=== PATIENT | female | born 1965 | race Caucasian/White ===

== ENCOUNTER 2019-07-22 09:48 | Inpatient (IN) ==
[2019-07-22 10:21] LABS: BASO# 0.02 X1000 (0.0-0.2); BASO% 0.1 % (0.0-0.8); EOS% 3.2 % (0.0-10.0); HEMATOCRIT 45.5 % (37.0-47.0); HEMOGLOBIN 15.2 g/dL (12.0-16.0); IMM GRAN# 0.11 X1000 (0.0-0.04); IMM GRAN% 0.6 % (0.0-0.5); LYMPH# 2.39 X1000 (1.2-3.4); LYMPH% 12.7 % (20.5-51.1); MCH 32.1 PG (27-31); MCHC 33.4 g/dL (33-37); MCV 96.2 FL (81-99); MONO# 1.79 X1000 (0.11-0.59); MONO% 9.5 % (1.7-9.3); NEUT# 13.96 X1000 (1.4-6.5); NEUT% 73.9 % (42.2-75.2); PLT 221 X1000 (130-400); RBC 4.73 XMIL (4.2-5.4); RDW 13.7 % (11.5-14.5); WBC 18.87 X1000 (4.8-10.8)
[2019-07-22 10:36] LABS: ACETAMINOPHEN 1.8 ug/mL (10-30); AGAP 12; ALBUMIN 4.3 g/dL (3.5-5.0); ALKALINE PHOSPHATASE 80 U/L (32-104); BUN 8 mg/dL (8-22); CALCIUM 9.6 mg/dL (8.8-10.2); CHLORIDE 103 mmol/L (98-107); COSMO 283; CREATININE 0.8 mg/dL (0.5-0.9); ESTIMATED GFR > 60; GLUCOSE 92 mg/dL (70-104); GOT 19 U/L (10-30); GPT 16 U/L (10-36); POTASSIUM 2.9 mmol/L (3.5-5.1); SALICYLATES < 3.00 mg/dL (3-10); SODIUM 143 mmol/L (136-145); TCO2 27 mmol/L (25-35); TOTAL PROTEIN 6.8 g/dL (6.3-8.3)
[2019-07-22 10:46] LABS: UR AMPHETAMINES QUAL NONE DETECTED (NONE DETECT); UR BARBITUATES QUAL NONE DETECTED (NONE DETECT); UR BENZODIAZEPIN QUAL NONE DETECTED (NONE DETECT); UR CANNABINOIDS QUAL NONE DETECTED (NONE DETECT); UR COCAINE QUAL NONE DETECTED (NONE DETECT); UR METHADONE QUAL NONE DETECTED (NONE DETECT); UR METHAMPHETAMINE QUAL NONE DETECTED (NONE DETECT); UR OPIATES QUAL NONE DETECTED (NONE DETECT); UR OXYCODONE QUAL PRESUMPTIVE POSITIVE (NONE DETECT); UR PCP QUAL NONE DETECTED (NONE DETECT); UR PROPOXYPHENE QUAL NONE DETECTED (NONE DETECT); UR TCA QUAL NONE DETECTED (NONE DETECT)
[2019-07-22] MEDS ORDERED: NICODERM PATCH TD ONE (11:00)
[2019-07-22] MEDS ORDERED: KLOR-CON PO ONE (11:02)
--- NOTE | 2019-07-22 11:09 | Diag Imaging Result Doc PS360 ---
EXAM: CHEST-2 VIEWS HISTORY: cough TECHNIQUE: Two views COMPARISON: 09/04/2017 FINDINGS: The lungs are well expanded. The heart is not enlarged. The vessels are not distended. There are no infiltrates. No pleural effusions. IMPRESSION: No pneumonia Electronically signed by Constantine Rosario 07/22/2019 11:06 AM
[2019-07-22] MEDS ORDERED: ATIVAN PO ONE (11:14)
[2019-07-22] MEDS ORDERED: POTASSIUM CHLORIDE 40 MEQ/SWI 40 MEQ/100 ML IVPB IV ONE (11:51)
[2019-07-22] MEDS ORDERED: DUONEB (A & A) INH PRN ×2 (11:55→13:42)
[2019-07-22] MEDS ORDERED: POTASSIUM CHLORIDE 20 MEQ/SWI 20 MEQ/100 ML IVPB IV SCH ×2 (12:00→14:00)
[2019-07-22] MEDS ORDERED: NS 1,000 ML IV SCH (12:00)
[2019-07-22 12:19] LABS: URINE SOURCE CLEAN CATCH
[2019-07-22 12:26] LABS: BILIRUBIN URINE NEGATIVE (NEGATIVE); BLOOD URINE NEGATIVE (NEGATIVE); CLARITY CLEAR (CLEAR); COLOR YELLOW; GLUCOSE URINE NEGATIVE (NEGATIVE); KETONE URINE NEGATIVE (NEGATIVE); LEUKOCYTES URINE 2+ (NEGATIVE); NITRITE URINE NEGATIVE (NEGATIVE); PH URINE 6.5; PROTEIN URINE TRACE mg/dL (NEGATIVE); SP GRAVITY URINE 1.005; URINE BACTERIA 3+ /HFP; URINE CAST NONE SEEN /LPF; URINE CRYSTAL NONE SEEN /HPF; URINE EPITHELIAL CELLS >10 /HPF (<10); URINE RBC <10 /HPF (<10); URINE YEAST NONE SEEN /HPF; UROBILINOGEN URINE NORMAL
--- NOTE | 2019-07-22 12:32 | HISTORY AND PHYSICAL ---
CHIEF COMPLAINT: Drug overdose. HISTORY OF PRESENT ILLNESS: This is a 54-year-old female. She has a history of COPD, major depressive disorder, although she has not been in the hospital for a while, diabetes, but it is diet controlled, spinal stenosis which causes chronic pain, hypertension. She has been having a lot issues with pain control, and feels despondent because she cannot get her pain under control. She has, I guess, no chronic pain doctor. This morning, she took the rest of a bottle of metoprolol 200 mg sustained. Reportedly, 11 pills were taken. I am not quite sure what time that happened. She did not throw any up. The patient was very nervous. She wanted to leave. I think she got some Ativan. In any case, she has had numerous attempts before. It looks like her last admission though was only in 2017, and she was admitted at [facility] at that time for bipolar disorder with suicidal ideation and drug overdose, also generalized anxiety disorder. She had been on Geodon, Remeron, Celexa, Valium, trazodone at that time. The patient is going to be admitted for drug overdose. She has to be observed because of the potential for bradycardia and bronchospasm and hypotension associated with her drug overdose state. PAST MEDICAL HISTORY: 1. COPD. 2. Hypertension. 3. Noninsulin-dependent diabetes. 4. Spinal stenosis. 5. GERD. 6. Dyslipidemia. PAST SURGICAL HISTORY: She has had cholecystectomy. SOCIAL HISTORY: She denies alcohol use. She does smoke a pack a day, she says for 38 years. No other drugs. FAMILY HISTORY: Sister and aunt with schizophrenia. Brother with bipolar disorder. Mother had CHF. Father had leukemia. ALLERGIES: Abilify, Welchol, and Reglan. REVIEW OF SYSTEMS: Otherwise negative times a 10-point review of systems. MEDICATIONS: Lipitor 40, clonidine 0.2, lisinopril 30, Neurontin 600 t.i.d., Prilosec 40 daily, Toprol-XL 200 daily, and trazodone 50 at bedtime. She is not on any psychiatric medications besides trazodone, but that may just be for sleep. PHYSICAL EXAMINATION: VITAL SIGNS: Currently, blood pressure is 152/92, heart rate of 62, respiratory rate 18, she has gotten as low as the 50s GENERAL: A well-developed female in no acute distress. She is a bit anxious. EYES: Pupils equal, round, reactive to light. Extraocular moves are intact. ENT: She had moist mucous membranes. NECK: Supple. CARDIOVASCULAR: Regular rate and rhythm. No murmurs, gallops, or rubs. PULMONARY: Bilateral breath sounds. She has some rales at the bottom of the left base. GASTROINTESTINAL: Soft, nontender, nondistended. Bowel sounds are positive. NEUROLOGIC: Cranial nerves II through XII were grossly intact. MUSCULOSKELETAL: Strength was 4/5, limited in her lower extremities because of back pain. LABORATORY DATA: White count is 18, hemoglobin and hematocrit 15 and 45, platelets 221,000. Potassium 2.9. Urine was negative, except for opiates. No alcohol. ASSESSMENT: This is a 54-year-old female with history of depression, hypertension, chronic obstructive pulmonary disease, who is here for a beta-ramiro overdose, suicidal ideation, major depression. 1. Beta-ramiro overdose. The fact that she took ten 200 sustained, she will need to be observed for at least 24 hours to make sure no bradycardia develops or hypotension or bronchospasm since she is a chronic obstructive pulmonary disease patient. We will watch her in the unit. Continue hydration. Supplement her potassium, and follow. She may require assistance if she does develop symptomatic bradycardia. At this time, we are just going to monitor. 2. Suicidal ideation, major depressive disorder, or bipolar. She will need urgent Psychiatric evaluation when she is medically stable. 3. Chronic obstructive pulmonary disease appears to be compensated. She is not hypoxic. She is not wheezing. Chest x-ray is clear. I am going to go ahead and just schedule nebulizer treatments, mostly because I am trying to avoid any toxic side effects from the beta-ramiro. 4. Diabetes. Will monitor blood sugars. They have been stable here. They look normal. May check an A1c and see if she has that truly. 5. Disposition. Pending her clinical status, obviously will go to intensive care unit. cc: MD Roberto Cantu MD MTDD
[2019-07-22] MEDS: DUONEB (A & A) INH SCH ×2 (15:39→21:21)
[2019-07-22] MEDS ORDERED: DUONEB (A & A) INH SCH (16:00)
--- NOTE | 2019-07-22 17:03 | PROGRESS NOTE ---
DATE: 07/22/2019 Patient was admitted on 07/22/2019 to [facility] and transferred over here. Her doctor is Dr. Roberto Christensen. This is a 54-year-old with history of COPD, major depressive order. She has not been in the hospital for a while. She has diabetes mellitus type 2. She has some spinal stenosis that causes chronic pain. Has history of hypertension. She has been having a lot of issues with pain control, feels despondent because they cannot get her pain under control. She has no chronic pain doctor. Took the rest of the bottle of her metoprolol, and they were 200 mg sustained tablets, where she took 11 tablets. Not quite sure what time this happened. She did not throw up any. Patient was nervous and wanted to leave. She got some Ativan. In any case, she has had numerous attempts before, I guess with overdose. It looks like the last admission was in 2017. Admitted to [facility] at that time for bipolar disorder and suicidal ideation, drug overdose, generalized anxiety disorder. She has been on Geodon, Remeron, Celexa, Valium, trazodone. Will admit the patient for metoprolol overdose. PAST MEDICAL HISTORY: 1. COPD. 2. Hypertension. 3. Diabetes mellitus type 2. 4. Spinal stenosis. 5. Gastroesophageal reflux disease. 6. Dyslipidemia. PAST SURGICAL HISTORY: She has had a cholecystectomy. PHYSICAL EXAMINATION: Vitals: At present blood pressure 130/80. Remains afebrile. Pulse of 67, respirations 17. Lungs: Clear anterolateral. Cardiovascular: Regular rhythm and rate without murmur or S3. Carotid, radial, and peripheral pulses 2+ and symmetrical. Extremities: Good capillary refill. No pedal edema. Skin: No sign of rashes. LABORATORY DATA: I reviewed her labs. White count was 18,870, hematocrit 45, platelet count 221,000. Sodium 143, potassium 2.9, chloride 103, BUN 8, creatinine 0.8. AST 19. ALT was 16. Alkaline phosphatase was 80. Urinalysis presumptive positive for oxycodone. Acetaminophen level was low at 1.8. Urinalysis unremarkable. It did have 3+ bacteria but no symptoms reported, dysuria, gross hematuria. Chest x-ray without pneumonia. ASSESSMENT AND PLAN: 1. Beta ramiro overdose. She took 10 to 11 of the 200 mg sustained release metoprolol. Observe at least 24 hours to make sure no significant bradycardia or hypertension occurs or significant bronchospasms. She does have underlying chronic obstructive pulmonary disease. 2. Chronic obstructive pulmonary disease. Respiratory status is stable, good air and gas exchange at this point. 3. Suicidal ideation, major depressive disorder, diagnosis of bipolar. Will have psychiatric evaluation. 4. Diabetes mellitus type 2. Pattern sugars. She is not hungry right now. We will just give her clear liquids. 5. Review her orders. She does have a nicotine patch. She is getting normal saline at 100 mL/hour. I did give her some potassium supplement at 20 mEq, and she is getting albuterol- ipratropium breathing treatments. cc: Blaze Amor MD
[2019-07-22] MEDS ORDERED: ZOFRAN IV PRN (18:34)
[2019-07-22] MEDS ORDERED: NS 1,000 ML IV ONE (18:34)
[2019-07-22] MEDS ORDERED: TYLENOL PO PRN (18:34)
[2019-07-22 19:51] LABS: AGAP 10; ALB/GLOB RATIO 1.5; ALBUMIN 3.1 g/dL (3.5-5.0); ALKALINE PHOSPHATASE 57 U/L (32-104); BUN 8 mg/dL (8-22); CALCIUM 8.7 mg/dL (8.8-10.2); CHLORIDE 108 mmol/L (98-107); COSMO 284; CREATININE 0.6 mg/dL (0.5-0.9); ESTIMATED GFR > 60; GLUCOSE 105 mg/dL (70-104); GOT 13 U/L (10-30); GPT 12 U/L (10-36); POTASSIUM 3.9 mmol/L (3.5-5.1); SODIUM 143 mmol/L (136-145); TCO2 25 mmol/L (25-35); TOTAL BILIRUBIN 0.45 mg/dL (0.20-1.00); TOTAL PROTEIN 5.2 g/dL (6.3-8.3)
[2019-07-22] MEDS: ATIVAN IV PRN (20:50)
[2019-07-22] MEDS: MORPHINE IV PRN (20:50)
[2019-07-22] MEDS: NEURONTIN PO SCH (20:53)
[2019-07-22] MEDS ORDERED: LIPITOR PO SCH (21:00)
[2019-07-22] MEDS: NS 1,000 ML IV SCH (23:42)
[2019-07-23] MEDS: ATIVAN IV PRN ×2 (00:02→06:10)
[2019-07-23] MEDS: DUONEB (A & A) INH SCH ×2 (03:14→09:38)
[2019-07-23] MEDS: MORPHINE IV PRN ×2 (04:23→09:26)
[2019-07-23 06:27] LABS: BASO# 0.01 X1000 (0.0-0.2); BASO% 0.1 % (0.0-0.8); EOS# 0.36 X1000 (0.0-0.7); EOS% 2.5 % (0.0-10.0); HEMATOCRIT 41.6 % (37.0-47.0); HEMOGLOBIN 13.7 g/dL (12.0-16.0); IMM GRAN# 0.06 X1000 (0.0-0.04); IMM GRAN% 0.4 % (0.0-0.5); LYMPH# 4.47 X1000 (1.2-3.4); LYMPH% 30.7 % (20.5-51.1); MCH 32.3 PG (27-31); MCHC 32.9 g/dL (33-37); MCV 98.1 FL (81-99); MONO# 1.52 X1000 (0.11-0.59); MONO% 10.4 % (1.7-9.3); MPV 11.3 FL (7.4-10.4); NEUT# 8.13 X1000 (1.4-6.5); NEUT% 55.9 % (42.2-75.2); PLT 179 X1000 (130-400); RBC 4.24 XMIL (4.2-5.4); RDW 13.7 % (11.5-14.5); WBC 14.55 X1000 (4.8-10.8)
[2019-07-23] MEDS ORDERED: PRILOSEC PO SCH (07:00)
--- NOTE | 2019-07-23 07:38 | EKG Report ---
Test Performed on : 07/22/2019 10:09:10 AM Test Reason : overdose Blood Pressure : / mmHG Vent. Rate : 069 BPM Atrial Rate : 069 BPM P-R Int : 148 ms QRS Dur : 092 ms QT Int : 376 ms P-R-T Axes : 037 020 069 degrees QTc Int : 402 ms Normal sinus rhythm. Possible Anterior infarct , age undetermined Abnormal ECG When compared with ECG of 26-MAY-2016 09:38, No significant change was found Unconfirmed Result
[2019-07-23] MEDS: NS 1,000 ML IV SCH (08:05)
[2019-07-23] MEDS: NEURONTIN PO SCH ×2 (08:09→12:17)
[2019-07-23] MEDS ORDERED: NICODERM PATCH TD SCH (09:00)
--- NOTE | 2019-07-23 09:09 | PROGRESS NOTE ---
DATE: 07/23/2019 SUBJECTIVE: Ms. Madrigal is feeling better. She was eating some breakfast. Had an uneventful night. Blood pressure is stable and up. She remains in sinus rhythm. OBJECTIVE: Vital Signs: Temperature 98.2 degrees, pulse 70, respirations 15, blood pressure 156/100. Lungs: Clear in all lung curtis. Cardiovascular: Regular rhythm and rate without murmur or S3. Abdomen: Soft. Skin: Warm and dry. Urine output is 1700 mL. ASSESSMENT AND PLAN: 1. Overdose with metoprolol. This appears to be out of her system. She is hemodynamically stable. 2. Underlying chronic obstructive pulmonary disease. Good air and gas exchange. 3. Suicidal ideation. Will ask Psychiatry to evaluate. She has battled depression. 4. Diabetes mellitus type 2. 5. Chronic pain syndrome. cc: Blaze Amor MD
[2019-07-23 15:07] VITALS: BP 144/130
--- NOTE | 2019-07-23 18:08 | DISCHARGE SUMMARY ---
ADMISSION DATE: 07/22/2019 DISCHARGE DATE: 07/23/2019 PRIMARY CARE PHYSICIAN: Roberto Christensen MD. HISTORY: She came in with drug overdose. A 54-year-old female with history of COPD, major depressive disorder, although she has not been in the hospital for while. She has diabetes but is diet controlled, spinal stenosis which causes chronic pain, hypertension. She has been having a lot of issues with pain control, feels despondent because she cannot get her pain under control. She has no chronic pain doctor. Took the rest of her bottle of metoprolol which were 200 mg tablets. She believes she took 10 or 11 tablets and not sure what time she took those. She did not throw any up. Patient was very nervous on presentation, wanted to leave. Got some Ativan to help. She has had numerous attempts before apparently for suicide. It looks like the last admission was in 2017. Admitted to [facility] at that time for bipolar disorder, suicide ideation, and drug overdose, generalized anxiety. She has been on Geodon, Remeron, Celexa, Valium, trazodone. The patient was admitted for drug overdose. PAST MEDICAL HISTORY: 1. COPD. 2. Hypertension. 3. Noninsulin-dependent diabetes. 4. Spinal stenosis. 5. Gastroesophageal reflux disease. 6. Dyslipidemia. HOSPITAL COURSE: The patient was admitted with beta-ramiro overdose, was put in the unit. Hemodynamically, she had developed a little bit of bradycardia, appeared to be sinus bradycardia, but her blood pressure stayed at a good position. No significant hypotension. She has some underlying COPD, but her air and gas exchange was good. She initially did not want any psychiatric evaluation, but she did go through the evaluation finally. She was eating and she decided she wanted to go home. She did not want to pursue any psychiatric help and she signed out against medical advice. cc: Blaze Amor MD
== END 2019-07-23 14:30 | disposition left against medical advice (07) | DRG 918 ==
LOC: P.ED 09:48 → ICU 13:40 → SUATTDRO 13:40
PROVIDERS: ATTEND Emergency Medicine